=== PATIENT | male | born 1980 | race American Indian/Alaskan Native ===

== ENCOUNTER 2016-12-25 01:51 | Emergency (ER) | payer SELFPAY ==
[2016-12-25 01:59] VITALS: BP 127/80
--- NOTE | 2016-12-25 03:25 | Emergency Department Report ---
Eye Injury/Foreign Body - HPI Duration: Today Eye Location: Bilateral Severity: Mild Tetanus Status: Not up to Date Eye Symptoms: Blurred Vision: No, Eye Redness: Yes, Grinding/Hammering Metal: No , Used Eye Protection: No, Contact Lens Use: No, Recalls Injury: Yes, Photophobia: Yes Other History: 36-year-old male past medical history none presents with complaint of bilateral eye redness and eye irritation 2-3 days. States that he was fixing a piece of equipment at home [place] with an dust blew into his eyes. States he has had eye irritation and watery tears in by both eyes since then. Slight photophobia secondary to eye irritation. States he is had mostly watery discharge from both eyes unaware of his tetanus vaccination status. Denies any significant blurry vision ED Review of Systems ROS: Stated complaint: POSS EYE INFECTION Other details as noted in HPI Constitutional: denies: chills, fever Eyes: as per HPI, eye discharge. denies: eye pain, vision change ENT: denies: ear pain, throat pain Respiratory: denies: cough, shortness of breath, wheezing Cardiovascular: denies: chest pain, palpitations Endocrine: no symptoms reported Gastrointestinal: denies: abdominal pain, nausea, diarrhea Genitourinary: denies: urgency, dysuria Musculoskeletal: denies: back pain, joint swelling, arthralgia Skin: denies: rash, lesions Neurological: denies: headache, weakness, paresthesias Psychiatric: denies: anxiety, depression Hematological/Lymphatic: denies: easy bleeding, easy bruising ED Past Medical Hx - Past Medical History Previous Medical History?: No - Surgical History Past Surgical History?: Yes Additional Surgical History: hernia repair - Social History Smoking Status: Current Every Day Smoker Substance Use Type: Alcohol, Marijuana - Medications Home Medications: Home Medications Medication Instructions Recorded Confirmed Last Taken Type Ibuprofen [Motrin] 600 mg PO Q8H PRN #20 tablet 12/25/16 Unknown Rx Naphazoline HCl/Pheniramine 1 drop OP Q6H PRN #1 bottle 12/25/16 Unknown Rx [Naphcon-A Eye Drops] Tobramycin 0.3% [Tobrex] 1 drop OU Q4H #1 bottle 12/25/16 Unknown Rx Eye Injury Exam - Exam General: Vital signs noted. No distress. Alert and acting appropriately. - Visual Acuity Bilateral Vision Acuity Degree: 20/20 Eye Exam: Both Injection, Both Chemosis, Both EOMI (extraocular movements are intact), Both Fluorescein Uptake (multiple small corneal abrasions not overlying iris or pupil), Both Photophobia (some photophobia to direct visualization of light) Exam: Vision 20/20 left eye 20/20 right eye 20/20 both eyes ED Course Vital Signs 12/25/16 01:57 Temperature 97.8 F Pulse Rate 77 Respiratory 18 Rate Blood Pressure 127/80 O2 Sat by Pulse 99 Oximetry ED Medical Decision Making - Medical Decision Making A/P: Corneal abrasion 1-on flourescein stain exam w/ [place] lamp both eyes have small corneal abrasions not overlying the pupils vision is 20/20 bilaterally 20/20 right eye 20/20 left eye .artificial teardrops when necessary, Naphcon-A drops when necessary, 2-tobramycin drops times one week 3-tetanus updated today 4-follow up with ophthalmology patient provided with follow-up information Critical care attestation.: If time is entered above; I have spent that time in minutes in the direct care of this critically ill patient, excluding procedure time. ED Disposition Clinical Impression: Corneal abrasion of both eyes Qualifiers: Encounter type: initial encounter Qualified Code(s): S05.01XA - Injury of conjunctiva and corneal abrasion without foreign body, right eye, initial encounter; S05.02XA - Injury of conjunctiva and corneal abrasion without foreign body, left eye, initial encounter Disposition: DC-01 TO HOME OR SELFCARE Is pt being admited?: No Does the pt Need Aspirin: No Condition: Stable Instructions: Corneal Abrasion (ED) Prescriptions: Ibuprofen [Motrin] 600 mg PO Q8H PRN #20 tablet PRN Reason: Pain Naphazoline HCl/Pheniramine [Naphcon-A Eye Drops] 1 drop OP Q6H PRN #1 bottle PRN Reason: Itching Tobramycin 0.3% [Tobrex] 1 drop OU Q4H #1 bottle Referrals: SUSIE MAYA MD [Staff Physician] - 3-5 Days Forms: Accompanied Note, Work/School Release Form(ED) Time of Disposition: 03:49
[2016-12-25] MEDS ORDERED: FUL-GLO OP ONE ×2 (03:29→03:30)
[2016-12-25] MEDS ORDERED: BOOSTRIX IM ONE (03:45)
[2016-12-25] MEDS ORDERED: MOTRIN PO ONE (03:45)
== END 2016-12-25 03:58 | disposition home or self-care (01) ==
LOC: ED 01:51
DX: S05.01XA Injury of conjunctiva and corneal abrasion without foreign body, right eye, initial encounter (principal); S05.02XA Injury of conjunctiva and corneal abrasion without foreign body, left eye, initial encounter; F17.200 Nicotine dependence, unspecified, uncomplicated; F12.10 Cannabis abuse, uncomplicated; X58.XXXA Exposure to other specified factors, initial encounter; Y93.89 Activity, other specified; Y92.89 Other specified places as the place of occurrence of the external cause; Y99.8 Other external cause status
CPT/HCPCS: 90471; 90715